=== PATIENT | female | born 1965 | race Caucasian/White ===

== ENCOUNTER → 2018-05-04 | Outpatient (CLI) | payer BC, MEDICAID | LOC: M SLEEP 20:00 | PROVIDERS: ATTEND Physician Assistant | DX: R40.0 Somnolence (principal) ==

== ENCOUNTER → 2018-06-06 | Outpatient (CLI) | payer BC, MEDICAID ==
--- NOTE | 2018-06-12 10:37 | SLEEPCENT ---
DATE OF PROCEDURE: 06/06/2018 ORDERED BY: Uche Persaud. Nocturnal polysomnography was performed for the titration of pressure therapy in this patient with obstructive sleep apnea syndrome. Apnea-hypopnea index of 15.5. For testing, the patient was fit with a ResMed AirFit F10 nasal mask of small size, 4 cm of water pressure were applied to the circuit and the lights were extinguished. 8 hours and 8 minutes of data were reviewed. There were 442 minutes of sleep identified. Sleep latency was normal at 17 minutes. REM latency was normal at 86 minutes. Sleep architecture was good with three REM cycles. Overall sleep efficiency 91.5%. The patient's electrocardiogram showed sinus rhythm with an average heart rate of 62 beats per minute. EEG showed normal waveforms for awake and sleep. Respiratory events were fully palliated with CPAP at a pressure +9. Limb activity was noted particularly early in the study. Limb movement arousal index on this occasion was 10 up from the diagnostic night when it was 4.4. IMPRESSION: Obstructive sleep apnea syndrome (G47.33). RECOMMENDATIONS: Nightly use of pressure therapy 9 cm of water. MTDD
== END ==
LOC: M SLEEP 19:45
PROVIDERS: ATTEND Nurse Practitioner Family
DX: G47.33 Obstructive sleep apnea (adult) (pediatric) (principal)